=== PATIENT | male | born 1955 | race Caucasian/White ===

== ENCOUNTER → 2017-01-29 | Day surgery (SDC) | payer OTHER ==
[~2017-01-29] VITALS: Ht 185.4 cm; Wt 79.8 kg
[~2017-01-29] MED LIST: Bupivacaine-MPF 0.5% 30 mL Inj INJ ONE; Dexamethasone 4 mg/mL Inj IV ONE; Dexamethasone 4 mg/mL Inj IVPUSH PRN; EPHEDrine Sulfate 50 mg/mL Inj IVPUSH PRN; HYDROmorphone 1 mg/mL Inj IVPUSH PRN; Lactated Ringer's 1,000 ML IV SCH; Lactated Ringer's 500 ML IV PRN; Lidocaine PF 1% 30 mL Inj INJ ONE; MetoCLOpramide 5 mg/mL 2 mL Inj IVPUSH PRN; Ondansetron 2 mg/mL 2 mL Inj IVPUSH PRN; Phenylephrine 10,000 mCg/mL Inj IVPUSH PRN; fentaNYL-PF 50 mCg/mL 2 mL Inj IVPUSH PRN
[2017-01-29] MEDS: Lactated Ringer's 1,000 ML IV SCH ×2 (13:47→15:39)
[2017-01-29 13:57] VITALS: BP 134/80; PULSE 67; RESP 16; O2SAT 96
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
[2017-01-29 16:35] VITALS: BP 114/73; PULSE 80; RESP 16; O2SAT 94
[2017-01-29 16:39] VITALS: BP 120/74; PULSE 74; RESP 16; O2SAT 93
--- NOTE | 2017-01-29 16:43 | PCM.PODBR ---
Immediate Operative Note Date of Service: Jan 29, 2017 Date of Service Jan 29, 2017 Pre Operative Diagnosis GRADE 0 ULCER SUB 5TH MPJ LEFT FOOT, EXOSTOSIS 5TH METATARSAL HEAD LEFT Post Operative Diagnosis same Procedure exostectomy 5th metatarsal head left foot Surgeon Surgeon: Jimmy Linares DPM Assistants: None Findings exostosis 5th metatarsal head left Grafts, Implants: None Complications There were no periprocedural complications identified. Condition Stable Anesthetic Administered: MAC Drains: None Catheters: None Output, Estimated Blood Loss: 1 Blood Admin during surgery: No Surgical Cast or Splint: None Surgical Specimen Removed: Not applicable Surgical Specimen sent to Path: Not applicable Post Operative Plan D/C when ready F/U my office 01/29/17 @ 1200 Jimmy Linares DPM Jan 29, 2017 16:43
--- NOTE | 2017-01-29 17:25 | OP ---
[address] [address] OPERATIVE REPORT PATIENT: RYAN CONDON : 1955 MR#: [id number] ADMIT: 01/29/2017 JOB ID: [id number] DATE OF SURGERY: 01/29/2017 SURGEON: Jimmy Linaers DPM PREOPERATIVE DIAGNOSIS(ES): 1. Grade zero ulceration sub 5th metatarsophalangeal joint left foot. 2. Exostosis plantar 5th metatarsal head left foot. POSTOPERATIVE DIAGNOSIS(ES): 1. Grade zero ulceration sub 5th metatarsophalangeal joint left foot. 2. Exostosis plantar 5th metatarsal head left foot. OPERATION PERFORMED: Exostectomy of the 5th metatarsal head left foot. ANESTHESIA: Local plus IV sedation. HEMOSTASIS: Ankle pneumatic tourniquet 250 mmHg x22 minutes. ESTIMATED BLOOD LOSS: Minimal. INDICATIONS: This patient has had a longstanding severely painful lesion beneath his 5th metatarsal head of the left foot. After failure of conservative care, consistent regular debridement, padding, alteration in shoes, and consideration of the risks and benefits including transfer of the lesion, the patient elects to have surgical correction of this problem. DESCRIPTION OF PROCEDURE: The patient was brought to the operating room and placed on operating table in supine position and IV sedation administered. Following administration of IV sedation, 20 mL of a 1:1 mix of 1% Xylocaine plain and 0.5% Marcaine plain was infiltrated about the posterior tibial nerve and across dorsum of the foot for local anesthesia. Pneumatic tourniquet was applied to the left ankle and the left foot was then prepped and draped in the usual aseptic manner. Anesthesia was tested and found to be inadequate laterally and an additional 10 mL of the same mixture of local was infiltrated about the posterior tibial nerve. When anesthesia was tested again, it was found to be adequate. At this time an Esmarch bandage was applied from toes to heel to exsanguinate the foot. Tourniquet inflated to 250 mmHg and the Esmarch bandage removed. Attention was directed to the lateral aspect of the left foot where a 4 cm incision was made over the lateral aspect of the foot, centered roughly over the 5th metatarsophalangeal joint. The skin incision was deepened via sharp and blunt dissection, with the superficial vessels being ligated as needed. Vital structures were identified and retracted. Dissection was carried down to the level of the 5th metatarsophalangeal joint capsule. Sharp and blunt dissection was carried out, isolating the distal 5th metatarsal and the 5th metatarsophalangeal joint itself. A linear incision was made in the 5th metatarsophalangeal joint capsule and subperiosteally the plantar half of the 5th metatarsal head was exposed. The plantar condyles of the 5th metatarsal were noted to be very prominent. These did underlie the painful lesion area. Sagittal saw was then utilized to perform plantar condylectomy/exostectomy of the 5th metatarsal head. The site was then lavaged with sterile saline. The foot was palpated beneath the 5th metatarsal head and there was felt to be adequate excision of the bony prominence. The 5th metatarsophalangeal joint capsule was then closed with 4-0 Vicryl. Deep tissues approximated with additional 4-0 Vicryl. Skin closed with 4-0 Prolene. Tincture of benzoin and Steri-Strips were then applied across the skin incision. Dexamethasone 4 mg was infiltrated for postoperative analgesia. Xeroform dressing and a dry sterile compressive dressing were then applied to the foot. The tourniquet was released at 22 minutes with good return of color to all digits. The patient was then taken from the operating room to Day Surgery, with vital signs stable, capillary filling time within normal limits to all digits, and with no apparent complications from the procedure or the anesthesia.
== END | disposition home or self-care (01) ==
LOC: SAS 12:53
PROVIDERS: ATTEND Podiatrist
DX: L97.521 Non-pressure chronic ulcer of other part of left foot limited to breakdown of skin (principal); M25.70 Osteophyte, unspecified joint; F17.210 Nicotine dependence, cigarettes, uncomplicated
CPT/HCPCS: 28110; J1100; J7120